=== PATIENT | female | born 1930 ===

== ENCOUNTER 2018-08-15 12:34 | Emergency (ER) | payer MEDICARE, OTHER ==
[2018-08-15 13:01] VITALS: BMI 47.5
[2018-08-15 13:05] VITALS: RESP 18
--- NOTE | 2018-08-15 13:42 | C.PDOC ---
History Of Present Illness 88-year-old female presents to the ED for evaluation of pain to her right buttock that has been radiating down her leg towards her foot. Patient reports ports pain with standing and walking, and states her pain is relieved with resting in sitting. She notes that she has had the symptoms before, but they have been more severe than usual over the last four days. She was given naproxen, steroids, and gabapentin by her doctor, without relief. Patient denies fever, chills, nausea, vomiting. Time Seen by Provider: 08/15/18 13:25 Chief Complaint (Nursing): Lower Extremity Problem/Injury History Per: Patient History/Exam Limitations: no limitations Onset/Duration Of Symptoms: Days (4) Current Symptoms Are (Timing): Worse Past Medical History Reviewed: Historical Data, Nursing Documentation, Vital Signs Vital Signs: Last Vital Signs Temp 97.9 F 08/15/18 13:01 Pulse 54 L 08/15/18 13:01 Resp 18 08/15/18 13:01 BP 159/74 H 08/15/18 13:01 Pulse Ox 96 08/15/18 13:01 - Medical History PMH: No Chronic Diseases Surgical History: No Surg Hx Family History: States: Unknown Family Hx - Social History Hx Alcohol Use: No Hx Substance Use: No - Immunization History Hx Tetanus Toxoid Vaccination: No Hx Influenza Vaccination: No Hx Pneumococcal Vaccination: No Review Of Systems Constitutional: Negative for: Fever, Chills Gastrointestinal: Negative for: Nausea, Vomiting Musculoskeletal: Positive for: Leg Pain (right), Foot Pain (right), Other (right buttock pain ) Physical Exam - Physical Exam Appears: Non-toxic, No Acute Distress, Other (obese) Skin: Normal Color, Warm, Dry Head: Atraumatic, Normacephalic Eye(s): bilateral: Normal Inspection Oral Mucosa: Moist Neck: Supple Chest: Symmetrical, No Deformity, No Tenderness Cardiovascular: Rhythm Regular, No Murmur Respiratory: Normal Breath Sounds, No Rales, No Rhonchi, No Wheezing Extremity: Normal ROM, Tenderness (over right buttock with deep palpation ), Capillary Refill (less than 2 seconds ), No Swelling Neurological/Psych: Oriented x3, Normal Speech, Normal Cognition ED Course And Treatment O2 Sat by Pulse Oximetry: 96 (on RA) Pulse Ox Interpretation: Normal Medical Decision Making Medical Decision Making: Patient will be given tramadol PO for her sciatica. On reassessment, patient is resting comfortably, showing no signs of distress, and is stable for discharge. Patient reports improvement in her pain. Shes advised to follow up with her PMD within 1 to 2 days for further evaluation. Disposition Counseled Patient/Family Regarding: Diagnosis, Need For Followup, Rx Given - Disposition Referrals: Blake Padilla [Medical Doctor] - Disposition: HOME/ ROUTINE Disposition Time: 15:04 Condition: STABLE Prescriptions: traMADol/Acetaminophen [Ultracet 37.5/325 mg] 1 tab PO TID PRN #20 tab PRN Reason: pain Instructions: Sciatica Forms: [facility] ([place]an), Gen Discharge Inst [place]an Print Language: CITIZEN OF [place] - POA Present On Arrival: None - Clinical Impression Clinical Impression: Sciatica - Scribe Statement The provider has reviewed the documentation as recorded by the Scribe (Darshana Dietrich) Provider Attestation: All medical record entries made by the Scribe were at my direction and personally dictated by me. I have reviewed the chart and agree that the record accurately reflects my personal performance of the history, physical exam, medical decision making, and the department course for this patient. I have also personally directed, reviewed, and agree with the discharge instructions and disposition.
[2018-08-15] MEDS ORDERED: Aluminum Hydroxide/Magnesium Hydroxide Susp (30 mL) PO STA (13:49)
[2018-08-15] MEDS ORDERED: Tramadol 25 mg PO STA (13:58)
[2018-08-15] MEDS ORDERED: Aluminum Hydroxide/Magnesium Hydroxide Susp (30 mL) ONE (14:01)
[2018-08-15] MEDS ORDERED: Tramadol 25 mg ONE (14:03)
[2018-08-15 15:20] VITALS: BP 185/75; PULSE 57; TEMP 98.1
[2018-08-15 23:45] VITALS: O2SAT 96
== END 2018-08-15 15:19 | disposition home or self-care (01) ==
LOC: C.ER 12:34
DX: M54.30 Sciatica, unspecified side (principal)